=== PATIENT | female | born 1960 | race African-American/Black ===

== ENCOUNTER 2023-08-28 11:23 | Emergency (ER) | payer OTHER, BC ==
[2023-08-28 11:29] VITALS: BP 131/60; PULSE 72; RESP 18; TEMP 98.2; BMI 22.4
[2023-08-28] MEDS ORDERED: ACETAMINOPHEN 325 MG TABLET (FP) ONE (12:09)
[2023-08-28] MEDS: ACETAMINOPHEN 325 MG TABLET (FP) PO ONE (12:10)
== END 2023-08-28 12:44 | disposition home or self-care (01) ==
LOC: JERFT 11:23
DX: S39.012A Strain of muscle, fascia and tendon of lower back, initial encounter (principal); M54.50 Low back pain, unspecified; V89.2XXA Person injured in unspecified motor-vehicle accident, traffic, initial encounter; Y93.I9 Activity, other involving external motion; Y92.410 Unspecified street and highway as the place of occurrence of the external cause
CPT/HCPCS: 99283-25